=== PATIENT | female | born 1985 | race Caucasian/White ===

== ENCOUNTER 2022-10-19 16:59 | Emergency (ER) | payer OTHER, SELFPAY ==
[2022-10-19 17:39] VITALS: BP 156/103; PULSE 96; RESP 18; TEMP 36.9; O2SAT 98; BMI 42.9
--- NOTE | 2022-10-19 18:30 | ED_ITS ---
HPI - Chest Pain General: Chief Complaint: Chest Pain Stated Complaint: chest and back pain 4xdays Time Seen by Provider: 10/19/22 17:27 Source: patient and family Mode of arrival: ambulatory Limitations: no limitations History of Present Illness: Patient presents to the emergency department today for evaluation and treatment of epigastric, right upper quadrant, and right-sided chest pain. Patient r eports an episode similar to this about a month ago which lasted about 3 days. She states this episode started on Friday and pain is nearly consistent with various times of worsening symptoms intermittently. Patient does not notice worsening pain while eating. She has been nauseated but had no vomiting. She denies fever or diarrhea. She has been taking Gas-X, Tums, and Tylenol without relief of pain. She states she feels very bloated. Patient still has her gallbladder. She denies previous issues with blood sugars. Patient was on Augmentin several weeks ago after some dental work but, states she felt so poorly while taking the antibiotic that she stopped after several days. Review of Systems General: Reports: 10 or more systems reviewed and unremarkable except in HPI and below Physical Exam Const: COMMON NORMALS: no acute distress, patient oriented x3 and alert HENMT: COMMON NORMALS: normocephalic, atraumatic, hearing grossly normal bilaterally and moist oral mucous membranes HEAD & SCALP: normocephalic and atraumatic Eye: COMMON NORMALS: Equal, round and reactive pupils present, EOMs intact bilaterally and conjunctivae normal CONJUNCTIVA: Yes conjunctivae normal PUPIL: Yes Equal, round and reactive pupils present Neck/C-Spine: COMMON NORMALS: full ROM and no JVD Lymph: LYMPHATIC: no lymphadenopathy noted Resp: COMMON NORMALS: normal respiratory effort, No retractions, No use of accessory muscles and clear to auscultation bilaterally AUSCULTATION: clear to auscultation bilaterally Cardio: COMMON NORMALS: no JVD, regular rate and regular rhythm RATE: regular rate RHYTHM: regular rhythm GI: OTHER: Normoactive bowel sounds in all 4 quadrants. Abdomen is soft. Tenderness to the epigastric and right upper quadrant region. : COMMON NORMALS: Yes no CVA tenderness BLADDER/KIDNEY EXAM: Yes no CVA tenderness Back/Pelvis: COMMON NORMALS: no CVA tenderness, no thoracic nor lumbar ten derness and thoraco-lumbar ROM normal Extremity: COMMON NORMALS: normal to inspection, full ROM and capillary refill normal Neuro: COMMON NORMALS: patient oriented x3 SENSORIUM/ORIENTATION: Yes alert Psych: COMMON NORMALS: mental status grossly normal, Normal thought process present, cooperative, normal affect and activity/motor behavior normal THOUGHT PROCESS: Normal thought process present Skin: COMMON NORMALS: no rashes or lesions noted and no wounds GENERAL SKIN EXAM: no rashes or lesions noted Course Vital Signs: Vital signs: Vital Signs Temperature 98.4 F 10/19/22 17:39 Pulse Rate 88 10/19/22 22:35 Respiratory Rate 16 10/19/22 22:35 Blood Pressure 137/95 10/19/22 22:35 Pulse Oximetry 98 10/19/22 22:35 Oxygen Delivery Me thod Room Air 10/19/22 20:00 MDM - Chest Pain Medical Decision Making Patient presented to the emergency department today for episodic epigastric and right upper quadrant pain. Patient had some minimal findings on lab work including a minimally elevated white blood cell count but, ultrasound of the right upper quadrant revealed gallstones. Discussed with the patient this finding and recommended follow-up with GI. Patient does not live in the area and reports she gets her care through [facility]. Patient was given a medical record release form to have her records sent to her primary care doctor to assist in referring her over to GI. However, we discussed acute flares including fevers, vomiting without ability to tolerate fluids, change or worsening of her pain she will be seen and reevaluated acutely prior to GI follow-up as needed. Patient verbalized understanding and agreement to treatment plan. Differential Diagnosis Likely acute myocardial infarction (Reflux, gallstones, cholecystitis, constipation, pancreatitis) Lab Data 10/19/22 19:01 10/19/22 19:01 Radiology Impressions Abdomen Ultrasound 10/19/22 19:52 IMPRESSION: 1. Cholelithiasis without sonographic evidence of acute cholecystitis. 2. Fatty liver. Laboratory Results WBC 10.9 10^3/uL (4.0-10.0) H 10/19/22 19: RBC 4.87 10^6/uL (4.1-5.3) 10/19/22 19:01 Hgb 12.9 g/dL (11.5-15.3) 10/19/22 19: Hct 41.3 % (37.0-47.0) 10/19/22 19: MCV 84.8 fl (81-99) 10/19/22 19: MCH 26.5 pg (28.0-34.0) L 10/19/22 19: MCHC 31.2 g/dL (30.0-36.0) 10/19/22 19: RDW 14.1 % (12.1-15.1) 10/19/22 19: Plt Count 365 10^3/cmm (130-400) 10/19/22 19: MPV 8.8 fL (7.4-10.4) 10/19/22 19: Neut % (Auto) 65.0 % 10/19/22 19: Lymph % (Auto) 26.2 % 10/19/22 19: [place] % (Auto) 5.8 % 10/19/22 19: Eos % (Auto) 2.3 % 10/19/22 19: Baso % (Auto) 0.2 % 10/19/22 19: Neut # (Auto) 7.06 10^3/uL (1.8-7.7) 10/19/22 19: Lymph # (Auto) 2.8 10^3/uL (0.8-4.8) 10/19/22 19: [place] # (Auto) 0.6 10^3/uL (0.2-0.9) 10/19/22 19: Eos # (Auto) 0.3 10^3/uL (0.0-0.8) 10/19/22 19: Baso # (Auto) 0.0 10^3/uL (0.0-0.1) 10/19/22 19: Nucleated RBC % (auto) 0 % 10/19/22 19: Nucleated RBCs # 0.0 /100WBC 10/19/22 19: ESR 9 mm/hr (0-15) 10/19/22 19: Sodium 139 mmol/L (136-145) 10/19/22 19: Potassium 4.0 mmol/L (3.5-5.1) 10/19/22 19: Chloride 106 mmol/L (98-107) 10/19/22 19: Carbon Dioxide 26 mmol/L (22-29) 10/19/22 19: Anion Gap 11.0 (5-19) 10/19/22 19: BUN 13 mg/dL (6-20) 10/19/22 19: Creatinine 0.9 mg/dL (0.5-0.9) 10/19/22 19: GFR Calculation 70.1 mL/min (90-130) L 10/19/22 19: Glucose 98 mg/dL (65-115) 10/19/22 19: Calculated Osmolality 288 mOsm/kg (285-295) 10/19/22 19: Calcium 8.9 mg/dL (8.5-10.5) 10/19/22 19: Total Bilirubin 0.2 mg/dL (0.15-1.2) 10/19/22 19: AST 12 U/L (0-32) 10/19/22 19: ALT 20 U/L (0-33) 10/19/22 19: Alkaline Phosphatase 68 U/L (35-105) 10/19/22 19: Troponin T Baseline 6 ng/L (0-10) 10/19/22 19: Troponin T 120 Minute 6.00 ng/L (0-10) 10/19/22 21:20 Delta Troponin T 0 ABS# (0-10) 10/19/22 21:20 C-Reactive Protein 15.4 mg/L (0.0-4.9) H 10/19/22 19:01 Total Protein 7.2 g/dL (6.6-8.7) 10/19/22 19: Albumin 3.9 g/dL (3.5-5.2) 10/19/22 19: Globulin 3.3 g/dL (1.3-4.6) 10/19/22 19: Lipase 35 U/L (13-60) 10/19/22 19: HCG, Qual Negative (Negative) 10/19/22 Urine Color Yellow (Yellow) 10/19/22: Urine Appearance Clear (CLEAR) 10/19/22: Urine pH 6.5 (5-7) 10/19/22 Ur Specific [place] 1.020 (1.005-1.030) 07/15/23 19:29 Urine Protein Neg (Negative) 10/19/22 19:29 Urine Glucose (UA) Norm (Normal) 10/19/22 19:29 Urine Ketones Negative (Negative) 10/19/22 19:29 Urine Blood Neg (Negative) 10/19/22 19:29 Urine Nitrate Negative (Negative) 10/19/22 19:29 Urine Bilirubin Neg (Negative) 10/19/22 19:29 Urine Urobilinogen 1 mg/dL (Negative) H 10/19/22 19:29 Ur Leukocyte Esterase Not Reportable 10/19/22 19:29 Discharge Plan Discharge Patient Disposition: Home Clinical Impression: Abdominal pain, RUQ, Cholelithiases Condition: Stable Prescriptions: New ondansetron 4 mg tablet,disintegrating 4 mg PO TID PRN (Reason: nausea and vomiting) Qty: 21 0RF Discharge Orders: Discharge ED (Routine); Ordered 10/19/22 Ordered By: Katya Segura Referrals: Tim Paulino MD [Primary Care Provider] - Discharge Diet: Low Fat Discharge Activity: Increase activity as tolerated Patient Instructions: Gallstones (ED) Activity Restrictions/Additional Instructions: Work-up here in the emergency department indicates concerns for gallstones. While there is no emergent condition at this time such as a retained gallstone or an infected gallbladder, it is important that you follow-up with a cell biology scientist to discuss as it does appear you are continuing to have recurrence of these episodes. We have provided you a medical record release form to fill out to send your imaging and evaluation from the emergency department to your primary care doctor as they can refer you onto a GI doctor in your insurance is approved health system. However, if in the meantime you develop fevers, vomiting, change or worsening of pain you need to be seen and reevaluated again as it is possible that stones can move throughout the gallbladder and, can become lodged in the ductal system. In these cases, it does become an emergent situation. 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
[2022-10-19 19:00] VITALS: BP 144/93; PULSE 93; RESP 18; O2SAT 97
[2022-10-19 19:16] LABS: Basophils % 0.2 %; Eosinophils # 0.3 10^3/uL (0.0-0.8); Eosinophils % 2.3 %; Hematocrit 41.3 % (37.0-47.0); Hemoglobin 12.9 g/dL (11.5-15.3); Lymphocytes # 2.8 10^3/uL (0.8-4.8); Lymphocytes % 26.2 %; Mean Corpuscular HGB Conc 31.2 g/dL (30.0-36.0); Mean Corpuscular Hemoglobin 26.5 pg (28.0-34.0); Mean Corpuscular Volume 84.8 fl (81-99); Mean Platelet Volume 8.8 fL (7.4-10.4); Monocytes # 0.6 10^3/uL (0.2-0.9); Monocytes % 5.8 %; Neutrophils # 7.06 10^3/uL (1.8-7.7); Nucleated Red Blood Cells % 0 %; Platelet Count 365 10^3/cmm (130-400); Red Blood Count 4.87 10^6/uL (4.1-5.3); Red Cell Distribution Width 14.1 % (12.1-15.1); White Blood Count 10.9 10^3/uL (4.0-10.0)
[2022-10-19 19:37] LABS: HCG Qualitative Urine. Negative (Negative)
[2022-10-19 19:44] LABS: Alanine Aminotransferase 20 U/L (0-33); Albumin Level 3.9 g/dL (3.5-5.2); Alkaline Phosphatase 68 U/L (35-105); Aspartate Amino Transferase 12 U/L (0-32); Blood Urea Nitrogen 13 mg/dL (6-20); C Reactive Protein 15.4 mg/L (0.0-4.9); Calcium 8.9 mg/dL (8.5-10.5); Carbon Dioxide 26 mmol/L (22-29); Chloride 106 mmol/L (98-107); Globulin 3.3 g/dL (1.3-4.6); Glomerular Filtration Rate 70.1 mL/min (90-130); Glucose 98 mg/dL (65-115); Lipase 35 U/L (13-60); Osmolality Calculated 288 mOsm/kg (285-295); Sodium 139 mmol/L (136-145); Total Bilirubin 0.2 mg/dL (0.15-1.2); Total Protein 7.2 g/dL (6.6-8.7)
--- NOTE | 2022-10-19 19:52 | USR_ITS ---
PROCEDURE INFORMATION: Exam: US Abdomen, Limited; Right Upper Quadrant Exam date and time: 10/19/2022 8:18 PM Age: 36 years old Clinical indication: Abdominal pain; Other: Ruq; Additional info: Ruq pain, epigastric and ruq pain- gallbladder? TECHNIQUE: Imaging protocol: Real time ultrasound of the abdomen with image documentation. Limited exam focused on the right upper quadrant. COMPARISON: No relevant prior studies available. FINDINGS: Liver: Mildly echogenic, suggesting fatty infiltration. Gallbladder: Cholelithiasis without gallbladder wall thickening or pericholecystic fluid. 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 Biliary ducts: Normal. No stones. No dilation. Pancreas: Suboptimally visualized. Right kidney: No mass. No definite stones. No hydronephrosis. US/US abdomen limited [id number] IMPRESSION: 1. Cholelithiasis without sonographic evidence of acute cholecystitis. 2. Fatty liver.
[2022-10-19 19:56] LABS: Add Urine Microscopic? NO; Charge for UA Resulting for Rev
[2022-10-19 20:00] VITALS: BP 137/95; PULSE 88; RESP 16; O2SAT 98
[2022-10-19 20:04] LABS: Troponin(5th) Baseline 6 ng/L (0-10)
[2022-10-19 20:27] LABS: Erythrocyte Sedimentation Rate 9 mm/hr (0-15)
[2022-10-19 20:29] LABS: Urine Appearance Clear (CLEAR); Urine Color Yellow (Yellow); pH Urine 6.5 (5-7)
[2022-10-19 20:30] LABS: Bilirubin Urine Neg (Negative); Blood Urine Neg (Negative); Glucose Urine UA Norm (Normal); Ketones Urine Negative (Negative); Nitrate Urine Negative (Negative); Protein Urine Neg (Negative); Urobilinogen Urine 1 mg/dL (Negative)
[2022-10-19] MEDS: ondansetron 2 mg/ML SDV 2 mL 4 MG IVP (21:32)
[2022-10-19] MEDS: morphine 4 mg/mL SDV 1 mL IVP (21:32)
[2022-10-19 22:11] LABS: Troponin 5 2HR Delta 0 ABS# (0-10)
[2022-10-19 22:35] VITALS: BP 137/95; PULSE 88; RESP 16; O2SAT 98
== END 2022-10-19 22:36 | disposition home or self-care (01) ==
PROVIDERS: Emergency Provider Physician Assistant; PCP Family Medicine
DX: K80.20 Calculus of gallbladder without cholecystitis without obstruction (principal)
CPT/HCPCS: 76705; 80053; 81003; 81025; 83690; 84484; 85025; 85651; 86140; 96374; 96375; 99285; J2270; J2405